=== PATIENT | female | born 1965 | race African-American/Black ===

== ENCOUNTER 2016-11-14 23:32 | Emergency (ER) | payer OTHER ==
[2016-11-14 23:46] VITALS: BP 126/84; PULSE 56; TEMP 98.4; BMI 31.6
--- NOTE | 2016-11-14 23:58 | PDOC ---
History of Present Illness - General Chief Complaint: Rectal Bleed Stated Complaint: BRIGHT RED BLOOD WITH BM Time Seen by Provider: 11/14/16 23:39 History Source: Patient Exam Limitations: No Limitations - History of Present Illness Initial Comments: 11/14/16 23:54 This is a 51-year-old female who comes in complaining of intermittent episodes of bright red blood per rectum 2 weeks. Patient saw her primary care doctor and was started on Flagyl for presumptive infectious causes. Patient said that she took the full prescription of Flagyl and symptoms have persisted. Patient said symptoms are associated with some intermittent diarrhea and the excessive gas. Patient denies any abdominal pain, fever, chills or any other complaints. Patient denies any nausea weakness, chest pain, shortness of breath or lightheadedness. PAST MEDICAL HISTORY: no significant history PAST SURGICAL HISTORY: no significant history FAMILY HISTORY: no pertinant history SOCIAL HISTORY: Pt lives with family and is employed. MEDICATIONS: reviewed ALLERGIES: As per nursing notes Review of Systems General: No fevers or chills, no weakness, no weight loss HEENT: No change in vision. No sore throat,. No ear pain CardioVascular: No chest pain or shortness of breath Respiratory:No cough, or wheezing. Gastrointestinal: no nausea, vomitting, diarrhea or constipation, No rectal bleeding Genitourinary: No dysuria, hematuria, or frequency Musculoskeletal: No joint or muscle pain or swelling Neurologic: No headache, vertigo, dizziness or loss of consciousness Psychiatric: nor depression Skin: No rashes or easy bruising Endocrine: no increased thirst or abnormal weight change Allergic: no skin or latex allergy All other systems reviewed and normal Exam: General: Well-nourished well-developed individual, no acute distress HEENT: Throat: Normal, tonsils normal, no erythema or exudate Neck: Supple, no meningeal signs, no lymphadenopathy Eyes::Pupils equal reactive and round, extraocular motion intact Chest: Nontender to palpation Cardiac: S1-S2 normal, regular rate and rhythm, no murmurs rubs or gallops Respiratory: Lungs clear to auscultation bilateral Abdomen: Soft, nondistended, normal bowel sounds, nontender to palpation diffusely Rectal: Nontender there is no hemorrhoids, there is brown stool well-formed in the rectal vault. Extremities: Warm, dry, no cyanosis, clubbing, or edema Skin: No rashes Neuro: Alert and oriented x3, nonfocal exam, grossly intact, normal gait Psych: Normal mood and affect Stool guaiac was negative Assessment and plan: This is a 51-year-old female with intermittent episodes of diarrhea, gas and blood with her stool. Patient had a Hemoccult blood for her stool here that was negative. Patient was reassured that she is not acutely bleeding and she can should follow up with her primary care doctor and also consider ALLERGY testing for food ALLERGIES. Past History - Past Medical History Allergies/Adverse Reactions: Allergies Allergy/AdvReac Type Severity Reaction Status Date / Time No Known Allergies Allergy Verified 11/14/16 23:40 Home Medications: Ambulatory Orders NK [No Known Home Medication] 11/14/16 Other medical history: DENIES - Psycho/Social/Smoking Cessation Hx Anxiety: No Suicidal Ideation: No Smoking History: Never smoked Have you smoked in the past 12 months: No Information on smoking cessation initiated: No Hx Alcohol Use: Yes (OCCAS) Drug/Substance Use Hx: No Substance Use Type: None *Physical Exam - Vital Signs Last Vital Signs Temp Pulse Resp BP Pulse Ox 98.4 F 56 L 16 126/84 100 11/14/16 23:42 11/14/16 23:42 11/14/16 23:42 11/14/16 23:42 11/14/16 23:42 ED Treatment Course - ADDITIONAL ORDERS Additional order review: Laboratory Results 11/14/16 23:35 Stool Occult Blood Negative *DC/Admit/Observation/Transfer Diagnosis at time of Disposition: History of bloody stools - Discharge Dispostion Disposition: HOME Condition at time of disposition: Stable Admit: No - Patient Instructions Additional Instructions: The test I did on your stool here in the emergency room was negative for any blood. It is uncertain as to the cause of the intermittent blood in your stool. It is important that you follow-up with your doctor. Consider ALLERGY testing for food ALLERGIES as this could be a cause. In addition to that your stool should be sent for cultures to rule out any infectious causes. Return to the emergency department immediately with ANY new, persistent or worsening symptoms. Continue any medications as previously prescribed by your physician. You should follow up with your primary doctor as soon as possible regarding today's emergency department visit. . Please make sure your doctor reviews the results of your emergency evaluation. Thank you for coming to the Emergency Department today for your care. It was a pleasure to see you today. Please note that your evaluation is INCOMPLETE until you follow-up with your doctor.
== END 2016-11-15 00:02 | disposition home or self-care (01) ==
LOC: FER 23:32
DX: K92.1 Melena (principal)
CPT/HCPCS: 82272; 99281-25